=== PATIENT | male | born 1985 | race African-American/Black ===

== ENCOUNTER 2018-05-18 19:37 | Emergency (ER) | payer SELFPAY ==
[2018-05-18 19:46] VITALS: BP 154/107
[2018-05-18] MEDS ORDERED: CLONIDINE HCL 0.2 MG TABLET PO ONE (20:07)
--- NOTE | 2018-05-18 20:09 | ER Document Report ---
ED Medical Screen (RME) - General Chief Complaint: Feet Swelling Stated Complaint: BILAT LEG AND FEET SWELLING Time Seen by Provider: 05/18/18 20:07 Mode of Arrival: Ambulatory Information source: Patient TRAVEL OUTSIDE OF THE [place] IN LAST 30 DAYS: No - HPI Patient complains to provider of: feet swelling; elevated BP Onset: Other - pt noticed swellingg of his feet and legs over the past several days. Also elevated BP though took his BP meds earlier today - Related Data Allergies/Adverse Reactions: No Known Allergies Allergy (Unverified 05/18/18 20:05) Physical Exam - Vital signs Vitals: Temp Pulse Resp BP Pulse Ox 98.9 F 91 20 154/107 H 91 L 05/18/18 19:45 05/18/18 19:45 05/18/18 19:45 05/18/18 19:45 05/18/18 19:45 Course - Vital Signs Vital signs: Temp Pulse Resp BP Pulse Ox 98.9 F 91 20 154/107 H 91 L 05/18/18 19:45 05/18/18 19:45 05/18/18 19:45 05/18/18 19:45 05/18/18 19:45
[2018-05-18 20:36] LABS: ABSOLUTE EOSINOPHILS # (AUTO) 0.2 10^3/uL (0.0-0.6); ABSOLUTE LYMPHOCYTES (AUTO) 2.3 10^3/uL (0.5-4.7); ABSOLUTE MONOCYTES (AUTO) 0.8 10^3/uL (0.1-1.4); ABSOLUTE NEUT (AUTO) 3.5 10^3/uL (1.7-8.2); BASOPHILS % (AUTO) 0.4 % (0-2); EOSINOPHILS % (AUTO) 2.7 % (0-6); HEMATOCRIT 44.8 % (37.9-51.0); HEMOGLOBIN 15.3 g/dL (13.5-17.0); LYMPHOCYTES % (AUTO) 34.3 % (13-45); MEAN CORPUSCULAR HGB CONC 34.2 g/dL (32.0-36.0); MEAN CORPUSCULAR VOLUME 97 fl (80-97); MONOCYTES % (AUTO) 11.2 % (3-13); PLATELET COUNT 203 10^3/uL (150-450); RED BLOOD COUNT 4.65 10^6/uL (4.35-5.55); RED CELL DISTRIBUTION WIDTH 13.4 % (11.5-14.0); SEGMENTED NEUTROPHILS % (AUTO) 51.4 % (42-78); TOTAL CELLS COUNTED % (AUTO) 100 %; WHITE BLOOD COUNT 6.8 10^3/uL (4.0-10.5)
--- NOTE | 2018-05-18 20:51 | EKG REPORT ---
SEVERITY:- NORMAL ECG - SINUS RHYTHM : Confirmed by: Nell Dawn MD 18-May-2018 20:51:25
[2018-05-18 20:52] LABS: ALANINE AMINOTRANSFERASE 63 U/L (21-72); ALBUMIN 4.3 g/dL (3.5-5.0); ALKALINE PHOSPHATASE 57 U/L (38-126); ANION GAP 8 (5-19); ASPARTATE AMINO TRANSFERASE 40 U/L (17-59); BILIRUBIN,DIRECT 0.2 mg/dL (0.0-0.4); BILIRUBIN,TOTAL 0.5 mg/dL (0.2-1.3); BLOOD UREA NITROGEN 16 mg/dL (7-20); CALCIUM 9.9 mg/dL (8.4-10.2); CARBON DIOXIDE 33 mmol/L (22-30); CHLORIDE 100 mmol/L (98-107); CREATINE KINASE 750 U/L (55-170); GLUCOSE 97 mg/dL (75-110); SODIUM 141.3 mmol/L (137-145); TOTAL PROTEIN 7.8 g/dL (6.3-8.2)
--- NOTE | 2018-05-18 20:54 | RADIOLOGY REPORT (SQ) ---
EXAM DESCRIPTION: CHEST 2 VIEWS COMPLETED DATE/TIME: 05/18/2018 8:32 pm REASON FOR STUDY: weakness COMPARISON: None. EXAM PARAMETERS: NUMBER OF VIEWS: two views TECHNIQUE: Digital Frontal and Lateral radiographic views of the chest acquired. RADIATION DOSE: NA LIMITATIONS: none FINDINGS: LUNGS AND PLEURA: No opacities, masses or pneumothorax. No pleural effusion. MEDIASTINUM AND HILAR STRUCTURES: No masses or contour abnormalities. HEART AND VASCULAR STRUCTURES: Heart normal size. No evidence for failure. BONES: No acute findings. HARDWARE: None in the chest. OTHER: No other significant finding. IMPRESSION: NO ACUTE RADIOGRAPHIC FINDING IN THE CHEST. TECHNICAL DOCUMENTATION: JOB ID: [id number] [employer]- All Rights Reserved Reading location - IP/workstation name: [email or web address]
[2018-05-18 21:04] LABS: CREATINE KINASE MB 3.89 ng/mL (<4.55); TROPONIN I 0.026 ng/mL
--- NOTE | 2018-05-18 21:16 | ER Document Report ---
ED General - General Chief Complaint: Feet Swelling Stated Complaint: BILAT LEG AND FEET SWELLING Time Seen by Provider: 05/18/18 20:07 Mode of Arrival: Ambulatory Notes: Patient is a 32-year old male with past medical history of morbid obesity, hypertension, presumptive sleep apnea although untreated currently who presents with 2-3 weeks of progressively worsening bilateral lower extremity edema. States that the symptoms started gradually and have been getting progressively worse since that time. He notes an associated dull, throbbing, aching pain to the bilateral legs equal on both sides. He has not tried anything to improve the swelling. He states that standing and walking seem to worsen swelling. He is visiting from out of town, has been unable to see his primary care doctor. Denies any history of DVT, pulmonary embolus or congestive heart failure. He has had this issue in the past which has responded to diuretics. TRAVEL OUTSIDE OF THE [place] IN LAST 30 DAYS: No - Related Data Allergies/Adverse Reactions: No Known Allergies Allergy (Unverified 05/18/18 20:05) Past Medical History - General Information source: Patient - Social History Smoking Status: Never Smoker Frequency of alcohol use: Occasional Drug Abuse: None Lives with: Alone Family History: Reviewed & Not Pertinent Patient has suicidal ideation: No Patient has homicidal ideation: No - Past Medical History Cardiac Medical History: Reports: Hx Hypertension Renal/ Medical History: Denies: Hx Peritoneal Dialysis Review of Systems - Review of Systems Notes: Constitutional: Negative for fever. HENT: Negative for sore throat. Eyes: Negative for visual changes. Cardiovascular: Negative for chest pain. Respiratory: Negative for shortness of breath. Gastrointestinal: Negative for abdominal pain, vomiting or diarrhea. Genitourinary: Negative for dysuria. Musculoskeletal: Positive for bilateral lower extremity edema Skin: Negative for rash. Neurological: Negative for headaches, weakness or numbness. 10 point ROS negative except as marked above and in HPI. Physical Exam - Vital signs Vitals: Temp Pulse Resp BP Pulse Ox 98.9 F 91 20 154/107 H 91 L 05/18/18 19:45 05/18/18 19:45 05/18/18 19:45 05/18/18 19:45 05/18/18 19:45 Interpretation: Hypoxic - On repeat assessment in the room the patient is 95% sitting in the chair Notes: PHYSICAL EXAMINATION: GENERAL: Morbidly obese male, well-appearing, well-nourished and in no acute distress. HEAD: Atraumatic, normocephalic. EYES: Pupils equal round and reactive to light, extraocular movements intact, sclera anicteric, conjunctiva are normal. ENT: nares patent, oropharynx clear without exudates. Moist mucous membranes. NECK: Normal range of motion, supple without lymphadenopathy LUNGS: Breath sounds clear to auscultation bilaterally and equal. No wheezes rales or rhonchi. HEART: Regular rate and rhythm without murmurs ABDOMEN: Soft, morbidly obese abdomen, nontender, normoactive bowel sounds. No guarding, no rebound. No masses appreciated. EXTREMITIES: Normal range of motion, 3+ pitting edema in the bilateral lower extremities that is equal and symmetric NEUROLOGICAL: No focal neurological deficits. Moves all extremities spontaneously and on command. PSYCH: Normal mood, normal affect. SKIN: Warm, Dry, normal turgor, no rashes or lesions noted. Course - Re-evaluation Re-evalutation: 05/18/18 21:11 Patient presents with bilateral lower extremity edema, equal and symmetric, 3+ bilaterally. Secondary to morbid obesity and venous stasis. Patient was noted to be borderline hypoxemic in triage although on recheck this is not present. Chest x-ray clear without any evidence of pulmonary edema. Labs otherwise unremarkable. I have had an extensive conversation with the patient regarding his morbid obesity and the need for emergent weight loss. We have reviewed that his sleep apnea, hypertension, hyperlipidemia, bilateral lower extremity edema are all related to his weight of 185 kg. The patient himself acknowledges this, states that he only began having these issues once again a large amount of weight. Compression stockings have been applied. I have advised an outpatient sleep study. At this time will discharge with return precautions and follow-up recommendations. Verbal discharge instructions given a the bedside and opportunity for questions given. Medication warnings reviewed. Patient is in agreement with this plan and has verbalized understanding of return precautions and the need for primary care follow-up in the next 24-72 hours. - Vital Signs Vital signs: Temp Pulse Resp BP Pulse Ox 98.9 F 91 20 154/107 H 91 L 05/18/18 19:45 05/18/18 19:45 05/18/18 19:45 05/18/18 19:45 05/18/18 19:45 - Laboratory Result Diagrams: 05/18/18 20:20 05/18/18 20:20 Laboratory results interpreted by me: 05/18/18 20:20 Carbon Dioxide 33 H Creatine Kinase 750 H - Diagnostic Test Radiology reviewed: Image reviewed, Reports reviewed Radiology results interpreted by me: 05/18/18 21:13 Chest x-ray: No acute infiltrate - EKG Interpretation by Me Additional EKG results interpreted by me: 05/18/18 21:13 Sinus rhythm. Rate 88. No ST elevations or depressions. QTC is 441. Discharge - Discharge Clinical Impression: Morbid obesity, Essential hypertension, Bilateral lower extremity edema Condition: Good Disposition: HOME, SELF-CARE Additional Instructions: Please wear compression stockings on both your legs throughout the day to help reduce the swelling in your legs. As we discussed, focus on weight loss gradually over the next several years to reduce the need to continue to wear compression stockings and to have an overall healthier life. This will also help prevent worsening complications from your weight. Return if you develop worsening pain on one side, fever greater than 101F, vomiting, weakness, numbness or any other symptoms that are concerning to you. As we discussed today, please strongly consider losing weight. Your obesity will result in a shorter life and serious diagnoses including heart attacks, stroke, diabetes, high blood pressure, high cholesterol, kidney failure, and will also result in a much less enjoyable life due to these chronic conditions. Focus on gradual life style changes including removing sugared beverages and processed foods from your diet and at least 30 minutes of moderate activity daily. Try to target 4-5lbs of weight loss per month. Referrals: AARTI SEGURA MD [ACTIVE STAFF] - Follow up as needed
== END 2018-05-18 21:53 | disposition home or self-care (01) ==
LOC: ER 19:37
DX: R60.9 Edema, unspecified (principal); E66.01 Morbid (severe) obesity due to excess calories; I10 Essential (primary) hypertension
CPT/HCPCS: 36415; 71046; 80053; 82550; 82553; 84484; 85025; 93005; 93010; 99284